=== PATIENT | male | born 1975 | race Caucasian/White ===

== ENCOUNTER 2021-12-29 13:30 | Emergency (ER) | payer OTHER ==
[2021-12-29 14:30] LABS: HEMOGLOBIN 15.6 gm/dl (14.0-17.5); RED BLOOD COUNT 5.36 M/UL (4.20-5.50); WHITE BLOOD COUNT 8.2 K/UL (4.5-11.0)
[2021-12-29 15:00] LABS: BUN/CREATININE RATIO 11 (0-10)
[2021-12-29] MEDS ORDERED: FLONASE 0.05% N16 GM (17:50)
[2021-12-29] MEDS ORDERED: ZYRTEC10 MG PO (17:50)
[2021-12-29] MEDS ORDERED: DELSYM30 MG/5 ML PO (17:50)
== END 2021-12-29 18:07 | disposition home or self-care (01) ==
LOC: ER1 13:30
PROVIDERS: Emergency Medicine
DX: J06.9 Acute upper respiratory infection, unspecified (principal); Z20.822 Contact with and (suspected) exposure to COVID-19
CPT/HCPCS: 0240U; 71045; 80053; 82550; 82553; 84484; 85025; 93005; 96360; 99284